=== PATIENT | male | born 2000 | race Caucasian/White ===

== ENCOUNTER 2025-05-14 00:01 | Emergency (ER) | payer BC ==
[~2025-05-14] VITALS: Ht 177.8 cm; Wt 69.0 kg
== END 2025-05-14 02:54 | disposition home or self-care (01) ==
LOC: ER 00:01
DX: S93.401A Sprain of unspecified ligament of right ankle, initial encounter (principal); W01.0XXA Fall on same level from slipping, tripping and stumbling without subsequent striking against object, initial encounter
CPT/HCPCS: 73610; 99283-25